=== PATIENT | female | born 1995 | race Caucasian/White ===

== ENCOUNTER 2018-06-10 01:10 | Inpatient (IN) | payer BC ==
[2018-06-10] MEDS ORDERED: Ondansetron 4 MG/2 ML SDV IVPUSH PRN ×2 (17:03→20:10)
[2018-06-10] MEDS ORDERED: Nalbuphine 20 MG/ML 1 ML Syringe IVPUSH PRN (17:03)
[2018-06-10] MEDS ORDERED: Sodium Chloride 0.9% 10 ML Syringe FLUSH PRN (17:03)
[2018-06-10] MEDS ORDERED: Lactated Ringers 1,000 ML IV SCH (17:15)
[2018-06-10] MEDS ORDERED: Oxytocin/Lactated Ringers 10 UNIT/1,000 ML BAG IV SCH (17:15)
--- NOTE | 2018-06-10 17:43 | PCM.LDHP ---
L&D History of Present Illness - General Date of Service: 06/10/18 Admit Problem/Dx: Patient Status Order with Admit Dx/Problem 06/10/18 17:03 Patient Status [ADT] Routine Admission Diagnosis/Problem Admission Diagnosis/Problem Source of Information: Patient History Limitations: Reports: No Limitations - History of Present Illness Introduction:: Carolina Quigley is a 22 year old female at 40 weeks 4 days by 10 week ultrasound who presents for elective induction of labor. She reports that since her last appointment she has been doing well. She reports some occasional contractions and cramping but no regular contractions. Denies any leaking of fluid or vaginal bleeding. Reports good movement. Associated Symptoms: Denies: vaginal bleeding, vaginal discharge, vaginal fluid Present Illness Comments:: Carolina Quigley is a 22-year-old at 40 weeks 4 days by 10 week ultrasound who presents for elective induction of labor. She has had routine care with myself since 10 weeks gestational age. She received the flu shot on 11/13/2017. She received TDaP vaccine on 03/11/2018. Her has been overall uncomplicated. This complicated by: * Obesity - BMI of 40.8 on initial evaluation, patient on aspirin 81 mg daily due to obesity and nulliparity * Elevated 1 hour glucose tolerance test with normal 3 hour glucose tolerance test labs Blood type: A+ Antibody screen: Negative First trimester hematocrit/hemoglobin: 30.5%/13.2 on 11/13/2017 Platelets: 308 on 11/13/2017 Urine culture: Mixed june suggestive of contamination Rubella status: Immune Hepatitis B surface antigen: Negative RPR: Negative HIV: Negative Hemoglobin A1c: I 0.3% on 11/13/2017 Gonorrhea: Negative Chlamydia: Negative Anatomy ultrasound: Normal anatomy ultrasound, no abnormalities, posterior placenta One hour glucose tolerance test: 135 Second trimester hematocrit/hemoglobin: 35.4%/11.6 on 03/15/2018 Platelets: 260 Three-hour glucose tolerance test: Fasting 87, 1 hour 153, 2 hour 129, 3 hour 87 GBS status: Negative - Related Data Allergies/Adverse Reactions: Allergies Allergy/AdvReac Type Severity Reaction Status Date / Time No Known Allergies Allergy Verified 04/13/14 20:46 Home Medications: Home Meds . 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 Para: 0 - Past Surgical History HEENT Surgical History: Reports: Tonsillectomy Social & Family History - Tobacco Use Smoking Status *Q: Never Smoker Tobacco Use Within Last Twelve Months: No - Tobacco Core Measures Tobacco Use/Smoking Within Last 30 Days: No Smokeless Tobacco Use in Last 30 Days: No - Alcohol Use Alcohol Use History: No - Recreational Drug Use Recreational Drug Use: No Drug Use in Last 12 Months: No - Living Situation & Occupation Living situation: Reports: Single, with Significant Other Occupation: Employed H&P Review of Systems - Review of Systems: Review Of Systems: See Below General: Denies: Fever, Chills, Malaise, Weakness, Fatigue HEENT: Reports: Sinus Congestion. Denies: Headaches, Rhinitis, Post Nasal Drip , Sore Throat, Visual Changes Pulmonary: Denies: Shortness of Breath, Wheezing, Cough Cardiovascular: Denies: Chest Pain, Palpitations, Dyspnea on Exertion Gastrointestinal: Denies: Abdominal Pain, Constipation, Diarrhea, Nausea, Vomiting Genitourinary: Denies: Dysuria, Frequency, Burning, Pain, Urgency Musculoskeletal: Reports: Back Pain (And hip pain of ) Skin: Denies: Rash, Lesions Psychiatric: Denies: Depression, Anxiety Neurological: Denies: Dizziness, Headache Hematologic/Lymphatic: Denies: Anemia L&D Exam - Exam Exam: See Below - Vital Signs Weight: 115.666 kg - OB Specific Contraction Duration (sec): 40-75 Contraction Frequency (min): 2-10 Contraction Intensity: Mild Movement: Active Heart Tones: Present Heart Tones per Min: 120 (+15 x 15 accelerations, no decelerations) Heart Rate (FHR) Variability: Moderate (6-25 bmp) Presentation: Vertex Estimated Weight: 7.5-8 pounds by Joshua's - Preston Score Preston Score Cervix Position: Anterior Preston Score Consistency: Soft Preston Score Effacement: 51-70% (70) Preston Score Dilation: 3-4 cm (4.5) Preston Score Infant's Station: -2 Preston Score Total: 9 - Exam General: Alert, Oriented HEENT: Conjunctiva Clear, EOMI Neck: Supple, Trachea Midline Lungs: Clear to Auscultation, Normal Respiratory Effort Cardiovascular: Regular Rate, Regular Rhythm GI/Abdominal Exam: Soft, Non-Tender, No Distention, Other (Gravid). No: Guarding, Rigid, Rebound Genitourinary: Normal external exam Back Exam: Normal Inspection Extremities: Pedal Edema (1+) Skin: Warm, Dry, Intact Psychiatric: Alert, Normal Affect, Normal Mood - Patient Data Lab Results Last 24 hrs: Laboratory Results - last 24 hr 06/10/18 Range/Units 17:17 WBC 12.26 H (3.98-10.04) K/mm3 RBC 4.33 (3.98-5.22) M/mm3 Hgb 12.1 (11.2-15.7) gm/L Hct 36.9 (34.1-44.9) % MCV 85.2 (79.4-94.8) fl MCH 27.9 (25.6-32.2) pg MCHC 32.8 (32.2-35.5) g/dl RDW Std Deviation 41.8 (36.4-46.3) fL Plt Count 286 (182-369) K/mm3 MPV 10.6 (9.4-12.3) fl Neut % (Auto) 78.0 H (34.0-71.1) % Lymph % (Auto) 15.9 L (19.3-51.7) % [place] % (Auto) 5.4 (4.7-12.5) % Eos % (Auto) 0.4 L (0.7-5.8) Baso % (Auto) 0.1 (0.1-1.2) % Neut # (Auto) 9.56 H (1.56-6.13) K/mm3 Lymph # (Auto) 1.95 (1.18-3.74) K/mm3 [place] # (Auto) 0.66 H (0.24-0.36) K/mm3 Eos # (Auto) 0.05 (0.04-0.36) K/mm3 Baso # (Auto) 0.01 (0.01-0.08) K/mm3 Result Diagrams: 06/10/18 17:17 - Problem List (1) 40 weeks gestation of SNOMED Code(s): 58242388 ICD Code: Z3A.40 - 40 WEEKS GESTATION OF Status: Acute Current Visit: Yes (2) Obesity SNOMED Code(s): 119405376, 415241430 ICD Code: E66.9 - OBESITY, UNSPECIFIED Status: Acute Current Visit: Yes (3) Abnormal glucose tolerance test (GTT) during , antepartum Status: Acute Current Visit: Yes Problem List Initiated/Reviewed/Updated: Yes Orders Last 24hrs: Active Orders 24 hr Category Date Time Status Patient Status [ADT] Routine ADT 06/10/18 17:03 Active Activity as Tolerated [RC] PFP Care 06/10/18 17:03 Active Communication Order [RC] ASDIRECTED Care 06/10/18 17:03 Active Heart Tones [RC] ASDIRECTED Care 06/10/18 17:03 Active Non Stress Test [RC] PER UNIT ROUTINE Care 06/10/18 17:03 Active Notify Provider [RC] PFP Care 06/10/18 17:03 Active Notify Provider [RC] PRN Care 06/10/18 17:03 Active Peripheral IV Care [RC] . DIRECTED Care 06/10/18 17:03 Active Vital Signs [RC] PER UNIT ROUTINE Care 06/10/18 17:03 Active Regular Diet [DIET] Diet 06/10/18 Dinner Active RAPID PLASMA REAGIN,RPR [CHEM] Routine Lab 06/10/18 17:17 Received Lactated Ringers [Ringers, Lactated] 1,000 ml Med 06/10/18 17:15 Active IV ASDIRECTED Nalbuphine [Nubain] Med 06/10/18 17:03 Active 10 mg IVPUSH Q2H PRN Ondansetron [Zofran] Med 06/10/18 17:03 Active 4 mg IVPUSH Q4H PRN Oxytocin/Lactated Ringers [Pitocin in LR 10 Units/1,000 Med 06/10/18 17:15 Active ML] 10 unit in 1,000 ml IV .CONTINUOUS Sodium Chloride 0.9% [Saline Flush] Med 06/10/18 17:03 Active 10 ml FLUSH ASDIRECTED PRN Electronic Heart Tones Ext w TOCO [WOMSER] Oth 06/10/18 17:03 Ordered Routine Electronic Heart Tones Internal [WOMSER] Per Unit Oth 06/10/18 17:03 Ordered Routine Peripheral IV Insertion Adult [OM.PC] Routine Oth 06/10/18 17:03 Ordered Resuscitation Status Routine Resus Stat 06/10/18 17:03 Ordered Medication Orders Lactated Ringer's (Ringers, Lactated) 1,000 mls @ 100 mls/hr IV ASDIRECTED ASA Oxytocin/Lactated Ringer's (Pitocin In Lr 10 Units/1,000 Ml) 10 unit in 1,000 mls @ 500 mls/hr IV .CONTINUOUS ASA; Protocol Nalbuphine HCl (Nubain) 10 mg IVPUSH Q2H PRN PRN Reason: pain Ondansetron HCl (Zofran) 4 mg IVPUSH Q4H PRN PRN Reason: Nausea/Vomiting Sodium Chloride (Saline Flush) 10 ml FLUSH ASDIRECTED PRN PRN Reason: Keep Vein Open Assessment/Plan Comment:: On initial exam patient was found to be 4.5/70/-2/soft/anterior. Artificial rupture membranes performed with [place] without complications. Mother and baby tolerated procedure without complications. Refer to observation for elective induction of labor Start Pitocin for induction of labor if patient does not start active labor within 30-60 minutes after rupture membranes Continuous monitoring Place IV and have Lactated Ringer's at 125 ml/hr May have small amounts of regular diet Activity as tolerated May have epidural as desired Plans to breast-feed after delivery Mild range blood pressures starting this afternoon and will monitor closely. We will get a CMP and urine protein/creatinine ratio to check for possible preeclampsia without severe features versus gestational hypertension. Anticipate vaginal delivery unless otherwise indicated Deandre Naidu M.D. 5:59 PM 06/10/2018
[2018-06-10] MEDS ORDERED: fentaNYL 100 MCG/2 ML SDV ONE (19:13)
[2018-06-10] MEDS ORDERED: ePHEDrine 50 MG/ML SDV IVPUSH PRN (20:10)
[2018-06-10] MEDS ORDERED: fentaNYL 100 MCG/2 ML SDV EPIDUR PRN (20:10)
[2018-06-10] MEDS ORDERED: fentaNYL/Bupivacaine-NS 2 MCG/ML-0.125%/PF 100 ML Bag EPIDUR PRN (20:10)
[2018-06-10] MEDS ORDERED: Phenylephrine 1 MG in Sodium Chloride 0.9% 10 ML IV SCH (20:15)
--- NOTE | 2018-06-10 20:18 | PCM.PREANE ---
Preanesthetic Assessment - Anesthesia/Transfusion/Family Hx Anesthesia History: Prior Anesthesia Without Reaction Family History of Anesthesia Reaction: No Transfusion History: No Prior Transfusion(s) Intubation History: Unknown - Physical Assessment NPO Status Date: 06/10/18 Pulse: 92 O2 Sat by Pulse Oximetry: 99 Respiratory Rate: 16 Blood Pressure: 138/73 Temperature: 36.7 C Vital Signs: Last Vital Signs Temp 36.7 C 06/10/18 17:03 Pulse 92 06/10/18 17:03 Resp 16 06/10/18 17:03 BP 138/73 06/10/18 17:03 Pulse Ox Height: 1.63 m Weight: 115.666 kg ASA Class: 2 Mental Status: Alert & Oriented x3 - Lab Values: Laboratory Last Values WBC 12.26 K/mm3 (3.98-10.04) H 06/10/18 17:17 RBC 4.33 M/mm3 (3.98-5.22) 06/10/18 17:17 Hgb 12.1 gm/L (11.2-15.7) 06/10/18 17:17 Hct 36.9 % (34.1-44.9) 06/10/18 17:17 MCV 85.2 fl (79.4-94.8) 06/10/18 17:17 MCH 27.9 pg (25.6-32.2) 06/10/18 17:17 MCHC 32.8 g/dl (32.2-35.5) 06/10/18 17:17 RDW Std Deviation 41.8 fL (36.4-46.3) 06/10/18 17:17 Plt Count 286 K/mm3 (182-369) 06/10/18 17:17 MPV 10.6 fl (9.4-12.3) 06/10/18 17:17 Neut % (Auto) 78.0 % (34.0-71.1) H 06/10/18 17:17 Lymph % (Auto) 15.9 % (19.3-51.7) L 06/10/18 17:17 [place] % (Auto) 5.4 % (4.7-12.5) 06/10/18 17:17 Eos % (Auto) 0.4 (0.7-5.8) L 06/10/18 17:17 Baso % (Auto) 0.1 % (0.1-1.2) 06/10/18 17:17 Neut # (Auto) 9.56 K/mm3 (1.56-6.13) H 06/10/18 17:17 Lymph # (Auto) 1.95 K/mm3 (1.18-3.74) 06/10/18 17:17 [place] # (Auto) 0.66 K/mm3 (0.24-0.36) H 06/10/18 17:17 Eos # (Auto) 0.05 K/mm3 (0.04-0.36) 06/10/18 17:17 Baso # (Auto) 0.01 K/mm3 (0.01-0.08) 06/10/18 17:17 Sodium 135 mEq/L (136-145) L 06/10/18 17:17 Potassium 3.9 mEq/L (3.5-5.1) 06/10/18 17:17 Chloride 101 mEq/L (98-107) 06/10/18 17:17 Carbon Dioxide 22 mEq/L (21-32) 06/10/18 17:17 Anion Gap 15.9 (5-15) H 06/10/18 17:17 BUN 8 mg/dL (7-18) 06/10/18 17:17 Creatinine 0.5 mg/dL (0.55-1.02) L 06/10/18 17:17 Est Cr Clr Drug Dosing 153.69 mL/min 06/10/18 17:17 Estimated GFR (MDRD) > 60 mL/min (>60) 06/10/18 17:17 BUN/Creatinine Ratio 16.0 (14-18) 06/10/18 17:17 Glucose 70 mg/dL (74-106) L 06/10/18 17:17 Calcium 9.4 mg/dL (8.5-10.1) 06/10/18 17:17 Total Bilirubin 0.3 mg/dL (0.2-1.0) 06/10/18 17:17 AST 18 U/L (15-37) 06/10/18 17:17 ALT 19 U/L (14-59) 06/10/18 17:17 Alkaline Phosphatase 131 U/L (46-116) H 06/10/18 17:17 Total Protein 6.8 g/dl (6.4-8.2) 06/10/18 17:17 Albumin 2.9 g/dl (3.4-5.0) L 06/10/18 17:17 Globulin 3.9 gm/dL 06/10/18 17:17 Albumin/Globulin Ratio 0.7 (1-2) L 06/10/18 17:17 Above labs reviewed and noted and within acceptable ranges to proceed with epidural if desired. 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: - Past Surgical History HEENT Surgical History: Reports: Tonsillectomy - SUBSTANCE USE Smoking Status *Q: Never Smoker Tobacco Use Within Last Twelve Months: No Recreational Drug Use History: No - HOME MEDS Home Medications: Home Meds PNV95/Ferrous Fumarate/FA [ Tablet] 1 each PO DAILY 06/10/18 [History] - CURRENT (IN HOUSE) MEDS Current Meds: Current Medications Ephedrine Sulfate (Ephedrine Sulfate) 5 mg IVPUSH ASDIRECTED PRN PRN Reason: Hypotension Fentanyl (Sublimaze) 100 mcg EPIDUR Q3H PRN PRN Reason: Pain Fentanyl/Bupivacaine HCl (Jghhsjla-Huuhm-Nf 2 Mcg/Ml-0.125%) 100 ml EPIDUR ASDIRECTED PRN PRN Reason: Pain Lactated Ringer's (Ringers, Lactated) 1,000 mls @ 100 mls/hr IV ASDIRECTED ASA Last Admin: 06/10/18 18:55 Dose: 100 mls/hr Oxytocin/Lactated Ringer's (Pitocin In Lr 10 Units/1,000 Ml) 10 unit in 1,000 mls @ 500 mls/hr IV .CONTINUOUS ASA; Protocol Phenylephrine HCl 1 mg/ Sodium (Chloride) 10.1 mls @ 1 mls/sec IV TITRATE ASA; Protocol Nalbuphine HCl (Nubain) 10 mg IVPUSH Q2H PRN PRN Reason: pain Last Admin: 06/10/18 19:19 Dose: 10 mg Ondansetron HCl (Zofran) 4 mg IVPUSH Q4H PRN PRN Reason: Nausea/Vomiting Ondansetron HCl (Zofran) 4 mg IVPUSH ONETIME PRN PRN Reason: Nausea/Vomiting Sodium Chloride (Saline Flush) 10 ml FLUSH ASDIRECTED PRN PRN Reason: Keep Vein Open Discontinued Medications Fentanyl (Sublimaze) Confirm Administered Dose [address] .[facility]-MED ONE Stop: 06/10/18 19:14
--- NOTE | 2018-06-10 21:14 | PCM.PREANE ---
Preanesthetic Assessment - Anesthesia/Transfusion/Family Hx Anesthesia History: Prior Anesthesia Without Reaction Family History of Anesthesia Reaction: No Transfusion History: No Prior Transfusion(s) Intubation History: Unknown - Review of Systems General: Fatigue, Malaise Pulmonary: Shortness of Breath Cardiovascular: Dyspnea on Exertion Gastrointestinal: Abdominal Pain (labor pain) Neurological: No Symptoms Other: Reports: None - Physical Assessment NPO Status Date: 06/10/18 Pulse: 92 O2 Sat by Pulse Oximetry: 99 Respiratory Rate: 16 Blood Pressure: 138/73 Temperature: 36.7 C Vital Signs: Last Vital Signs Temp 36.7 C 06/10/18 20:18 Pulse 92 06/10/18 20:18 Resp 16 06/10/18 20:18 BP 138/73 06/10/18 20:18 Pulse Ox 99 06/10/18 20:18 Height: 1.63 m Weight: 115.666 kg ASA Class: 2 Mental Status: Alert & Oriented x3 Airway Class: Mallampati = 2 Dentition: Reports: Normal Dentition Thyro-Mental Finger Breadths: 2 Mouth Opening Finger Breadths: 2 ROM/Head Extension: Full Lungs: Clear to Auscultation, Normal Respiratory Effort Cardiovascular: Regular Rate, Regular Rhythm - Lab Values: Laboratory Last Values WBC 12.26 K/mm3 (3.98-10.04) H 06/10/18 17:17 RBC 4.33 M/mm3 (3.98-5.22) 06/10/18 17:17 Hgb 12.1 gm/L (11.2-15.7) 06/10/18 17:17 Hct 36.9 % (34.1-44.9) 06/10/18 17:17 MCV 85.2 fl (79.4-94.8) 06/10/18 17:17 MCH 27.9 pg (25.6-32.2) 06/10/18 17:17 MCHC 32.8 g/dl (32.2-35.5) 06/10/18 17:17 RDW Std Deviation 41.8 fL (36.4-46.3) 06/10/18 17:17 Plt Count 286 K/mm3 (182-369) 06/10/18 17:17 MPV 10.6 fl (9.4-12.3) 06/10/18 17:17 Neut % (Auto) 78.0 % (34.0-71.1) H 06/10/18 17:17 Lymph % (Auto) 15.9 % (19.3-51.7) L 06/10/18 17:17 [place] % (Auto) 5.4 % (4.7-12.5) 06/10/18 17:17 Eos % (Auto) 0.4 (0.7-5.8) L 06/10/18 17:17 Baso % (Auto) 0.1 % (0.1-1.2) 06/10/18 17:17 Neut # (Auto) 9.56 K/mm3 (1.56-6.13) H 06/10/18 17:17 Lymph # (Auto) 1.95 K/mm3 (1.18-3.74) 06/10/18 17:17 [place] # (Auto) 0.66 K/mm3 (0.24-0.36) H 06/10/18 17:17 Eos # (Auto) 0.05 K/mm3 (0.04-0.36) 06/10/18 17:17 Baso # (Auto) 0.01 K/mm3 (0.01-0.08) 06/10/18 17:17 Sodium 135 mEq/L (136-145) L 06/10/18 17:17 Potassium 3.9 mEq/L (3.5-5.1) 06/10/18 17:17 Chloride 101 mEq/L (98-107) 06/10/18 17:17 Carbon Dioxide 22 mEq/L (21-32) 06/10/18 17:17 Anion Gap 15.9 (5-15) H 06/10/18 17:17 BUN 8 mg/dL (7-18) 06/10/18 17:17 Creatinine 0.5 mg/dL (0.55-1.02) L 06/10/18 17:17 Est Cr Clr Drug Dosing 153.69 mL/min 06/10/18 17:17 Estimated GFR (MDRD) > 60 mL/min (>60) 06/10/18 17:17 BUN/Creatinine Ratio 16.0 (14-18) 06/10/18 17:17 Glucose 70 mg/dL (74-106) L 06/10/18 17:17 Calcium 9.4 mg/dL (8.5-10.1) 06/10/18 17:17 Total Bilirubin 0.3 mg/dL (0.2-1.0) 06/10/18 17:17 AST 18 U/L (15-37) 06/10/18 17:17 ALT 19 U/L (14-59) 06/10/18 17:17 Alkaline Phosphatase 131 U/L (46-116) H 06/10/18 17:17 Total Protein 6.8 g/dl (6.4-8.2) 06/10/18 17:17 Albumin 2.9 g/dl (3.4-5.0) L 06/10/18 17:17 Globulin 3.9 gm/dL 06/10/18 17:17 Albumin/Globulin Ratio 0.7 (1-2) L 06/10/18 17:17 - Allergies Allergies/Adverse Reactions: Allergies Allergy/AdvReac Type Severity Reaction Status Date / Time No Known Allergies Allergy Verified 04/13/14 20:46 - Anesthesia Plan Pre-Op Medication Ordered: None - Acknowledgements Anesthesia Type Planned: Epidural Pt an Appropriate Candidate for the Planned Anesthesia: Yes Alternatives and Risks of Anesthesia Discussed w Pt/Guardian: Yes Pt/Guardian Understands and Agrees with Anesthesia Plan: Yes PreAnesthesia Questionnaire - Past Health History Medical/Surgical History: Denies Medical/Surgical History Gastrointestinal History: Reports: GERD 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 HEENT Surgical History: Reports: Tonsillectomy - SUBSTANCE USE Smoking Status *Q: Never Smoker Tobacco Use Within Last Twelve Months: No Recreational Drug Use History: No - HOME MEDS Home Medications: Home Meds PNV95/Ferrous Fumarate/FA [ Tablet] 1 each PO DAILY 06/10/18 [History] - CURRENT (IN HOUSE) MEDS Current Meds: Current Medications Ephedrine Sulfate (Ephedrine Sulfate) 5 mg IVPUSH ASDIRECTED PRN PRN Reason: Hypotension Fentanyl (Sublimaze) 100 mcg EPIDUR Q3H PRN PRN Reason: Pain Last Admin: 06/10/18 21:09 Dose: 100 mcg Fentanyl/Bupivacaine HCl (Ncklttex-Dtryw-Nr 2 Mcg/Ml-0.125%) 100 ml EPIDUR ASDIRECTED PRN PRN Reason: Pain Last Admin: 04/30/19 21:09 Dose: 100 ml Lactated Ringer's (Ringers, Lactated) 1,000 mls @ 100 mls/hr IV ASDIRECTED ASA Last Admin: 06/10/18 18:55 Dose: 100 mls/hr Oxytocin/Lactated Ringer's (Pitocin In Lr 10 Units/1,000 Ml) 10 unit in 1,000 mls @ 500 mls/hr IV .CONTINUOUS ASA; Protocol Phenylephrine HCl 1 mg/ Sodium (Chloride) 10.1 mls @ 1 mls/sec IV TITRATE ASA; Protocol Nalbuphine HCl (Nubain) 10 mg IVPUSH Q2H PRN PRN Reason: pain Last Admin: 06/10/18 19:19 Dose: 10 mg Ondansetron HCl (Zofran) 4 mg IVPUSH Q4H PRN PRN Reason: Nausea/Vomiting Ondansetron HCl (Zofran) 4 mg IVPUSH ONETIME PRN PRN Reason: Nausea/Vomiting Sodium Chloride (Saline Flush) 10 ml FLUSH ASDIRECTED PRN PRN Reason: Keep Vein Open Discontinued Medications Fentanyl (Sublimaze) Confirm Administered Dose 100 mcg .ROUTE .STK-MED ONE Stop: 06/10/18 19:14
[2018-06-10] MEDS ORDERED: Bupivacaine 0.25% 10 ML SDV ONE (22:00)
[2018-06-10] MEDS ORDERED: Sodium Chloride 0.9% 1,000 ML ONE (22:03)
[2018-06-10] MEDS ORDERED: Terbutaline 1 MG/ML SDV ONE (22:06)
[2018-06-10] MEDS ORDERED: Metoclopramide 10 MG/2 ML SDV ONE (22:11)
[2018-06-10] MEDS ORDERED: Citric Acid/Sodium Citrate Solution 30 ML Cup ONE (22:11)
[2018-06-10] MEDS ORDERED: Terbutaline 1 MG/ML SDV IV ONE (23:08)
--- NOTE | 2018-06-10 23:51 | PCM.PNLD ---
Labor Progress Note - VS & Meds Vital Signs: Last Vital Signs Temp 36.7 C 06/10/18 21:14 Pulse 92 06/10/18 21:14 Resp 16 06/10/18 21:14 BP 138/73 06/10/18 21:14 Pulse Ox 99 06/10/18 21:14 Active Medications: Current Medications Ephedrine Sulfate (Ephedrine Sulfate) 5 mg IVPUSH ASDIRECTED PRN PRN Reason: Hypotension Last Admin: 06/10/18 21:26 Dose: 10 mg Fentanyl (Sublimaze) 100 mcg EPIDUR Q3H PRN PRN Reason: Pain Last Admin: 06/10/18 21:09 Dose: 100 mcg Fentanyl/Bupivacaine HCl (Zjhccyaz-Xculz-Du 2 Mcg/Ml-0.125%) 100 ml EPIDUR ASDIRECTED PRN PRN Reason: Pain Last Admin: 06/10/18 21:09 Dose: 100 ml Lactated Ringer's (Ringers, Lactated) 1,000 mls @ 100 mls/hr IV ASDIRECTED ASA Last Admin: 06/10/18 18:55 Dose: 100 mls/hr Oxytocin/Lactated Ringer's (Pitocin In Lr 10 Units/1,000 Ml) 10 unit in 1,000 mls @ 500 mls/hr IV .CONTINUOUS ASA; Protocol Phenylephrine HCl 1 mg/ Sodium (Chloride) 10.1 mls @ 1 mls/sec IV TITRATE ASA; Protocol Nalbuphine HCl (Nubain) 10 mg IVPUSH Q2H PRN PRN Reason: pain Last Admin: 06/10/18 19:19 Dose: 10 mg Ondansetron HCl (Zofran) 4 mg IVPUSH Q4H PRN PRN Reason: Nausea/Vomiting Ondansetron HCl (Zofran) 4 mg IVPUSH ONETIME PRN PRN Reason: Nausea/Vomiting Sodium Chloride (Saline Flush) 10 ml FLUSH ASDIRECTED PRN PRN Reason: Keep Vein Open Discontinued Medications Citric Acid/Sodium Citrate (Bicitra Solution) Confirm Administered Dose 30 ml .ROUTE .STK-MED ONE Stop: 06/10/18 22:12 Fentanyl (Sublimaze) Confirm Administered Dose 100 mcg .ROUTE .STK-MED ONE Stop: 06/10/18 19:14 Sodium Chloride (Normal Saline) Confirm Administered Dose 1,000 mls @ as directed .ROUTE .STK-MED ONE Stop: 06/10/18 22:04 Metoclopramide HCl (Reglan) Confirm Administered Dose 10 mg .ROUTE .STK-MED ONE Stop: 06/10/18 22:12 Terbutaline Sulfate (Brethine) Confirm Administered Dose 1 mg .ROUTE .STK-MED ONE Stop: 06/10/18 22:07 Terbutaline Sulfate (Brethine) 0.25 mg IV ONETIME ONE Stop: 06/10/18 23:09 - Uterine Contractions Contraction Frequency (min): 2-3 Contraction Duration (sec): 40-75 Contraction Intensity: Moderate to Strong Uterine Resting Tone: Soft - Monitoring Monitor Mode: Spiral Electrode Heart Rate (FHR) Baseline: 130 Heart Rate (FHR) Variability: Moderate (6-25 bmp) Accelerations: Present, 15x15 Decelerations: Early, Variable, Recurrent (>50% x 20 min) Strip Review: Category II - Vaginal Exam Dilation (cm): 9 Effacement (Percent): 90 Station: 0 Cervical Position: Anterior Sterile Vaginal Exam Performed By: Deandre Naidu - Labor Progress (Free Text) Labor Progress: Patient with recurrent variable decelerations into the 70s to 80s. Patient evaluated and had intrauterine pressure catheter placed without difficulty by Dr. Brown. Patient also had scalp electrode placed for monitoring of heart rate by Dr. Brown. Patient has had amnioinfusion started with the IUPC without significant relief of the variable decelerations. Patient on O2 by Venturi mask Patient receiving IV fluids. Pitocin stopped this time Patient with recurrent variable decelerations that have been improving throughout her evaluation after placement of the IUPC. heart rate with moderate variability after recovery from the variable deceleration. Patient making progress at this time and is currently 9/90/0/soft/anterior. Anticipate vaginal delivery unless otherwise indicated Deandre Naidu M.D. 11:50 PM 06/10/2018
[2018-06-11] MEDS ORDERED: Lidocaine 1% 50 ML MDV ONE (01:18)
--- NOTE | 2018-06-11 02:05 | PCM.DEL ---
L & D Note - General Info Date of Service: 06/11/18 Mother's Due Date: 06/06/18 - Delivery Note Labor: Augmented by ARM Delivery Outcome: Livebirth Delivery Method: Spontaneous Vaginal Delivery-Single Delivery Mode: Vacuum Extraction Presentation: Right Occiput Anterior (LIBERTAD) Nuchal Cord: Present Prep: Povidone-Iodine (Betadine Anesthesia Type: Epidural, Local Anesthetic: Lidocaine (Xylocaine) 1% Plain Local Anesthetic Volume: Other (15 ml) Amniotic Fluid Description: Clear Episiotomy Type: None Laceration: 2nd Degree, Perineal (left sided, repaired with 3-0 Vicryl) Suture type: Vicryl Suture size: 3-0 Placenta: Intact, Spontaneous Cord: 3 Vessels Estimated Blood Loss: 400 Resuscitation Needed: Yes : Bulb Syringe, Cathether, Stimulated, Warmed, [place] Used, Warmer Used Provider: Deandre Naidu Score 1 min: 6 Score 5 min: 9 Second Stage Interventions: Reports: Pushing Effectively Delivery Comments (Free Text/Narrative):: Stage I: Carolina Quigley was admitted for elective induction of labor. On admission her cervix was dilated to 4 cm. She was GBS negative. She had artificial rupture membranes with clear fluid. She began radha regularly on her own without augmentation and during labor had recurrent deep variable decelerations into the 60s to 70s with each contraction. She was given terbutaline IV to stop the contractions to help with recovery of the . She had intrauterine pressure catheter placed and amnioinfusion started. A scalp electrode was placed for monitoring of heart rate. At this time she was 8 cm dilated and was able to make recovery for the heart rate to moderate variability after the decelerations and the decelerations went into the 100s to 110s with each contraction. She continued to make progress to complete and pushing. Stage II: During pushing patient had significant decelerations into the 70s to 80s that was prolonged between contractions. Discussed with patient that due to the prolonged deceleration of the heart rate that I recommend for assistance with delivery with use of vacuum assisted delivery. Discuss some of the risks and benefits of the vacuum delivery including failure, injury to infant, brain bleed and possible need for section. Patient states in her standing and gave verbal consent. The Optireno vacuum extractor was applied to the infant's head and with the next contraction suction was applied to approximately 500 mmHg and gentle traction was applied. There was 1 pop off and was felt to be due to significant fluid in the vaginal vault that the Kiwi vacuum extractor does not do well with. Decision was made to use Nieves type electric vacuum extractor. The Nieves type vacuum extractor was applied to the head and with the next contraction vacuum was applied with suction to 400 mmHg and over the course of 3 pushes the infant's head was brought to the perineum. The vacuum was released. The vacuum was applied for a total of 1 minute. There was one total pop off. With additional pushing the mother was able to deliver the infant without difficulty. On 06/11/2018 she had a vacuum- assisted vaginal delivery of a live male at 0110. Apgars of 6 & 9. Weight of 3570 g (7 lbs 13.9 oz). Length of 20.5 inches. There was a single nuchal cord that was not reduced prior to delivery. was delivered in LIBERTAD position. The cord was doubly clamped and cut by father of the infant. was taken to the warmer for further resuscitation. Stage III: She had a spontaneous delivery of an intact placenta in Stefani presentation. Three vessel cord. She was given pitocin and fundal massage. She had a second-degree left-sided perineal laceration that was repaired with 3-0 Vicryl in usual fashion. After evaluation there was noted to be an additional spot of bleeding near one of the sutures and a [id number] suture with 3-0 Vicryl was placed and hemostasis was noted. Mom and baby were stable to recovery. EBL of 400 mL. Deandre Naidu MD 2:05 AM 06/11/2018 Vacuum Extractor Progress Note - Alternative Labor Strategies Considered Alternative Labor Strategies Considered:: Reports: Yes Strategies Considered:: Reports: Contraction Intensity Adequate, Empty Bladder Indications Considered:: Reports: Yes Indications:: Reports: Suspicion of Immediate or Potential Compromise Time Out:: Reports: Yes - Patient Prepared Patient Prepared:: Reports: Yes Informed Consent:: Reports: Verbal Risks: Reports: Yes Risks Include:: Reports: Laceration, Shoulder Dystocia, Maternal Injury Anesthesia/Analgesia Adequate:: Reports: Yes - Probability of Success High Probability of Success:: Reports: Yes Weight Estimated:: Reports: AGA Patient Diabetic:: Reports: No Pelvis Adequate:: Reports: Yes Position:: LIBERTAD Asynclitic:: Reports: No Station:: +3 - Application Time Maximum Application Time & Number of Pop-Offs Predetermined:: Reports: Yes Maximum Pressure Maintained in [place] (cm Hg):: 50 Total Application Time (min): *max=20min: 1 Number of Times Cup Disengaged:: 1 Type of Vacuum Used:: Reports: Cup: Nieves type Vacuum Extraction: Successful - Exit Strategy Exit strategy available:: Reports: Yes and resuscitation teams readily available:: Reports: Yes - General Info Date of Service: 06/11/18 - Patient Data Vitals - Most Recent: Last Vital Signs Temp 36.7 C 06/10/18 21:14 Pulse 92 06/10/18 21:14 Resp 16 06/10/18 21:14 BP 138/73 06/10/18 21:14 Pulse Ox 99 06/10/18 21:14 Weight - Most Recent: 115.666 kg Lab Results Last 24 Hours: Laboratory Results - last 24 hr 06/10/18 06/10/18 06/10/18 Range/Units 17:17 17:17 17:17 WBC 12.26 H (3.98-10.04) K/mm3 RBC 4.33 (3.98-5.22) M/mm3 Hgb 12.1 (11.2-15.7) gm/L Hct 36.9 (34.1-44.9) % MCV 85.2 (79.4-94.8) fl MCH 27.9 (25.6-32.2) pg MCHC 32.8 (32.2-35.5) g/dl RDW Std Deviation 41.8 (36.4-46.3) fL Plt Count 286 (182-369) K/mm3 MPV 10.6 (9.4-12.3) fl Neut % (Auto) 78.0 H (34.0-71.1) % Lymph % (Auto) 15.9 L (19.3-51.7) % [place] % (Auto) 5.4 (4.7-12.5) % Eos % (Auto) 0.4 L (0.7-5.8) Baso % (Auto) 0.1 (0.1-1.2) % Neut # (Auto) 9.56 H (1.56-6.13) K/mm3 Lymph # (Auto) 1.95 (1.18-3.74) K/mm3 [place] # (Auto) 0.66 H (0.24-0.36) K/mm3 Eos # (Auto) 0.05 (0.04-0.36) K/mm3 Baso # (Auto) 0.01 (0.01-0.08) K/mm3 Sodium 135 L (136-145) mEq/L Potassium 3.9 (3.5-5.1) mEq/L Chloride 101 (98-107) mEq/L Carbon Dioxide 22 (21-32) mEq/L Anion Gap 15.9 H (5-15) BUN 8 (7-18) mg/dL Creatinine 0.5 L (0.55-1.02) mg/dL Est Cr Clr Drug Dosing 153.69 mL/min Estimated GFR (MDRD) > 60 (>60) mL/min BUN/Creatinine Ratio 16.0 (14-18) Glucose 70 L (74-106) mg/dL Calcium 9.4 (8.5-10.1) mg/dL Total Bilirubin 0.3 (0.2-1.0) mg/dL AST 18 (15-37) U/L ALT 19 (14-59) U/L Alkaline Phosphatase 131 H (46-116) U/L Total Protein 6.8 (6.4-8.2) g/dl Albumin 2.9 L (3.4-5.0) g/dl Globulin 3.9 gm/dL Albumin/Globulin Ratio 0.7 L (1-2) Blood Type A POSITIVE Gel Antibody Screen Negative Med Orders - Current: Current Medications Ephedrine Sulfate (Ephedrine Sulfate) 5 mg IVPUSH ASDIRECTED PRN PRN Reason: Hypotension Last Admin: 06/10/18 21:26 Dose: 10 mg Fentanyl (Sublimaze) 100 mcg EPIDUR Q3H PRN PRN Reason: Pain Last Admin: 06/10/18 21:09 Dose: 100 mcg Fentanyl/Bupivacaine HCl (Sdpsbwcn-Lieik-Dd 2 Mcg/Ml-0.125%) 100 ml EPIDUR ASDIRECTED PRN PRN Reason: Pain Last Admin: 06/10/18 21:09 Dose: 100 ml Lactated Ringer's (Ringers, Lactated) 1,000 mls @ 100 mls/hr IV ASDIRECTED ASA Last Admin: 06/10/18 18:55 Dose: 100 mls/hr Oxytocin/Lactated Ringer's (Pitocin In Lr 10 Units/1,000 Ml) 10 unit in 1,000 mls @ 500 mls/hr IV .CONTINUOUS ASA; Protocol Phenylephrine HCl 1 mg/ Sodium (Chloride) 10.1 mls @ 1 mls/sec IV TITRATE ASA; Protocol Nalbuphine HCl (Nubain) 10 mg IVPUSH Q2H PRN PRN Reason: pain Last Admin: 06/10/18 19:19 Dose: 10 mg Ondansetron HCl (Zofran) 4 mg IVPUSH Q4H PRN PRN Reason: Nausea/Vomiting Ondansetron HCl (Zofran) 4 mg IVPUSH ONETIME PRN PRN Reason: Nausea/Vomiting Sodium Chloride (Saline Flush) 10 ml FLUSH ASDIRECTED PRN PRN Reason: Keep Vein Open Discontinued Medications Citric Acid/Sodium Citrate (Bicitra Solution) Confirm Administered Dose 30 ml .ROUTE .STK-MED ONE Stop: 06/10/18 22:12 Fentanyl (Sublimaze) Confirm Administered Dose 100 mcg .ROUTE .STK-MED ONE Stop: 06/10/18 19:14 Sodium Chloride (Normal Saline) Confirm Administered Dose 1,000 mls @ as directed .ROUTE .STK-MED ONE Stop: 06/10/18 22:04 Lidocaine HCl (Xylocaine 1%) Confirm Administered Dose 50 ml .ROUTE .STK-MED ONE Stop: 06/11/18 01:19 Metoclopramide HCl (Reglan) Confirm Administered Dose 10 mg .ROUTE .STK-MED ONE Stop: 06/10/18 22:12 Terbutaline Sulfate (Brethine) Confirm Administered Dose 1 mg .ROUTE .STK-MED ONE Stop: 06/10/18 22:07 Terbutaline Sulfate (Brethine) 0.25 mg IV ONETIME ONE Stop: 06/10/18 23:09 Last Admin: 06/10/18 22:10 Dose: 0.25 mg - Problem List & Annotations (1) 40 weeks gestation of SNOMED Code(s): 11986862 Code(s): Z3A.40 - 40 WEEKS GESTATION OF Status: Acute Current Visit: Yes (2) Obesity SNOMED Code(s): 355037851, 351838552 Code(s): E66.9 - OBESITY, UNSPECIFIED Status: Acute Current Visit: Yes (3) Abnormal glucose tolerance test (GTT) during , antepartum Status: Acute Current Visit: Yes (4) Vaginal delivery SNOMED Code(s): 799752417 Code(s): O80 - ENCOUNTER FOR FULL-TERM UNCOMPLICATED DELIVERY Status: Acute Current Visit: Yes (5) Vacuum extractor delivery, delivered SNOMED Code(s): 569674775 Code(s): O66.5 - ATTEMPTED APPLICATION OF VACUUM EXTRACTOR AND FORCEPS Status: Acute Current Visit: Yes (6) Second degree perineal laceration during delivery SNOMED Code(s): 9665269 Code(s): O70.1 - SECOND DEGREE PERINEAL LACERATION DURING DELIVERY Status: Acute Current Visit: Yes - Problem List Review Problem List Initiated/Reviewed/Updated: Yes - My Orders Last 24 Hours: My Active Orders 06/10/18 17:03 Patient Status [ADT] Routine Activity as Tolerated [RC] PFP Communication Order [RC] ASDIRECTED Heart Tones [RC] ASDIRECTED Non Stress Test [RC] PER UNIT ROUTINE Notify Provider [RC] PFP Notify Provider [RC] PRN Peripheral IV Care [RC] QSHIFT Vital Signs [RC] PER UNIT ROUTINE Nalbuphine [Nubain] 10 mg IVPUSH Q2H PRN Ondansetron [Zofran] 4 mg IVPUSH Q4H PRN Sodium Chloride 0.9% [Saline Flush] 10 ml FLUSH ASDIRECTED PRN Electronic Heart Tones Ext w TOCO [WOMSER] Routine Electronic Heart Tones Internal [WOMSER] Per Unit Routine Peripheral IV Insertion Adult [OM.PC] Routine Resuscitation Status Routine 06/10/18 17:15 Lactated Ringers [Ringers, Lactated] 1,000 ml IV ASDIRECTED Oxytocin/Lactated Ringers [Pitocin in LR 10 Units/1,000 ML] 10 unit in 1,000 ml IV .CONTINUOUS 06/10/18 17:17 RAPID PLASMA REAGIN,RPR [CHEM] Routine 06/10/18 17:47 PROTEIN/CREATININE RATIO,URINE [URCHEM] Routine 06/10/18 Dinner Regular Diet [DIET] - Plan Plan:: Admit to inpatient following vacuum-assisted vaginal delivery Continue Pitocin per unit protocol following delivery of placenta and lactated Ringer's until tolerating regular diet Regular diet Vitals per unit routine Ibuprofen and Tylenol for pain control Assist with bottlefeeding as needed Continue to monitor lochia Anticipate discharge home on day #2 Deandre Naidu MD 2:05 AM 06/11/2018
[2018-06-11] MEDS ORDERED: Ibuprofen 600 MG Tab PO PRN (05:58)
[2018-06-11] MEDS ORDERED: Witch Hazel Medicated Pads 40/Jar TOP PRN (08:00)
[2018-06-11] MEDS ORDERED: Acetaminophen 325 MG Tab PO PRN (08:00)
[2018-06-11] MEDS ORDERED: Oxytocin/Lactated Ringers 10 UNIT/1,000 ML BAG IV SCH (08:00)
[2018-06-11] MEDS ORDERED: Benzocaine/Menthol 20%-0.5% Spray 56 GM Canister TOP PRN (08:00)
[2018-06-11] MEDS ORDERED: Docusate Sodium 100 MG Cap PO PRN (08:00)
[2018-06-11] MEDS ORDERED: Hydrocortisone Acetate 25 MG Supp RECTAL PRN (08:00)
[2018-06-11] MEDS: Prenatal Multivitamin with Calcium/Folic Acid/Iron Tab PO SCH (08:21)
--- NOTE | 2018-06-11 09:12 | PCM48HPAN ---
Post Anesthesia Note - EVALUATION WITHIN 48HRS OF ANESTHETIC Vital Signs in Normal Range: Yes Patient Participated in Evaluation: Yes Respiratory Function Stable: Yes Airway Patent: Yes Cardiovascular Function Stable: Yes Hydration Status Stable: Yes Pain Control Satisfactory: Yes Nausea and Vomiting Control Satisfactory: Yes Mental Status Recovered: Yes Pulse Rate: 78 Resp Rate: 12 Temperature: 36.4 C Blood Pressure: 112/72 - COMMENTS/OBSERVATIONS Free Text/Narrative:: no anesthesia complications noted
[2018-06-11] MEDS: Ibuprofen 600 MG Tab PO PRN ×2 (13:32→20:53)
[2018-06-12 04:01] VITALS: BP 100/75
[2018-06-12] MEDS: Ibuprofen 600 MG Tab PO PRN ×2 (05:02→13:12)
--- NOTE | 2018-06-12 05:22 | PCM.SN ---
- Free Text/Narrative Note: Post Progress Note PPD # 1 Subjective: Doing well overall. Ambulating without difficulty. Lochia minimal and decreasing since day of delivery. Voiding without difficulty. Tolerating regular diet without nausea or vomiting. Pain controlled with oral medications. Bottlefeeding with minimal difficulty. Objective: Vitals: Vital Signs - 24 hr 06/11/18 06/11/18 06/11/18 08:24 09:12 16:39 Temperature 36.4 C 36.4 C 36.7 C Pulse, 78 78 108 H Peripheral Respiratory 12 12 16 Rate Blood Pressure 112/72 112/72 O2 Sat by Pulse 99 99 Oximetry 06/11/18 06/11/18 06/11/18 16:52 19:47 19:48 Temperature 36.7 C Pulse, 73 Peripheral Respiratory 14 Rate Blood Pressure 154/77 H 146/75 H 128/64 O2 Sat by Pulse 99 Oximetry 06/12/18 03:56 Temperature 36.3 C Pulse, 66 Peripheral Respiratory 14 Rate Blood Pressure 100/75 O2 Sat by Pulse 98 Oximetry Physical Exam General: Alert and oriented, no acute distress Lungs: Clear to auscultation bilaterally Heart: Regular rate and rhythm Abdomen: Soft, minimal appropriate tenderness, non-distended, fundus midline, nontender, and at the umbilicus Extremities: No edema ASSESSMENT: 22-year-old female 001 s/p vacuum-assisted vaginal delivery PPD #1, complicated by obesity and elevated one-hour glucose tolerance test with normal 3 hour test PLAN: Doing well Feeding with minimal difficulty. Assist as needed Lochia minimal. Continue to monitor for appropriate lochia. Continue routine care Patient with several mild range blood pressures in the evening yesterday but they have improved overnight and does not need additional monitoring of her blood pressures at this time. Anticipate discharge home today unless baby is not discharged Deandre Naidu MD 5:20 AM 06/12/2018
--- NOTE | 2018-06-12 05:29 | PCM.DCSUM1 ---
Discharge Summary - Hospital Course Free Text/Narrative:: Stage I: Carolina Quigley was admitted for elective induction of labor. On admission her cervix was dilated to 4 cm. She was GBS negative. She had artificial rupture membranes with clear fluid. She began radha regularly on her own without augmentation and during labor had recurrent deep variable decelerations into the 60s to 70s with each contraction. She was given terbutaline IV to stop the contractions to help with recovery of the . She had intrauterine pressure catheter placed and amnioinfusion started. A scalp electrode was placed for monitoring of heart rate. At this time she was 8 cm dilated and was able to make recovery for the heart rate to moderate variability after the decelerations and the decelerations went into the 100s to 110s with each contraction. She continued to make progress to complete and pushing. Stage II: During pushing patient had significant decelerations into the 70s to 80s that was prolonged between contractions. Discussed with patient that due to the prolonged deceleration of the infant heart rate that I recommend for assistance with delivery with use of vacuum assisted delivery. Discuss some of the risks and benefits of the vacuum delivery including failure, injury to , brain bleed and possible need for section. Patient states in her standing and gave verbal consent. The mushroom Kiwi vacuum extractor was applied to the 's head and with the next contraction suction was applied to approximately 500 mmHg and gentle traction was applied. There was 1 pop off and was felt to be due to significant fluid in the vaginal vault that the Kiwi vacuum extractor does not do well with. Decision was made to use Nieves type electric vacuum extractor. The Nieves type vacuum extractor was applied to the head and with the next contraction vacuum was applied with suction to 400 mmHg and over the course of 3 pushes the infant's head was brought to the perineum. The vacuum was released. The vacuum was applied for a total of 1 minute. There was one total pop off. With additional pushing the mother was able to deliver the without difficulty. On 06/11/2018 she had a vacuum- assisted vaginal delivery of a live male infant at 0110. Apgars of 6 & 9. Weight of 3570 g (7 lbs 13.9 oz). Length of 20.5 inches. There was a single nuchal cord that was not reduced prior to delivery. was delivered in LIBERTAD position. The cord was doubly clamped and cut by father of the infant. was taken to the warmer for further resuscitation. Stage III: She had a spontaneous delivery of an intact placenta in Stefani presentation. Three vessel cord. She was given pitocin and fundal massage. She had a second-degree left-sided perineal laceration that was repaired with 3-0 Vicryl in usual fashion. After evaluation there was noted to be an additional spot of bleeding near one of the sutures and a [id number] suture with 3-0 Vicryl was placed and hemostasis was noted. Mom and baby were stable to recovery. EBL of 400 mL. HPI Initial Comments: Stage I: Carolina Quigley was admitted for elective induction of labor. On admission her cervix was dilated to 4 cm. She was GBS negative. She had artificial rupture membranes with clear fluid. She began radha regularly on her own without augmentation and during labor had recurrent deep variable decelerations into the 60s to 70s with each contraction. She was given terbutaline IV to stop the contractions to help with recovery of the infant. She had intrauterine pressure catheter placed and amnioinfusion started. A scalp electrode was placed for monitoring of heart rate. At this time she was 8 cm dilated and was able to make recovery for the heart rate to moderate variability after the decelerations and the decelerations went into the 100s to 110s with each contraction. She continued to make progress to complete and pushing. Stage II: During pushing patient had significant decelerations into the 70s to 80s that was prolonged between contractions. Discussed with patient that due to the prolonged deceleration of the infant heart rate that I recommend for assistance with delivery with use of vacuum assisted delivery. Discuss some of the risks and benefits of the vacuum delivery including failure, injury to infant, brain bleed and possible need for section. Patient states in her standing and gave verbal consent. The mushroom Kiwi vacuum extractor was applied to the infant's head and with the next contraction suction was applied to approximately 500 mmHg and gentle traction was applied. There was 1 pop off and was felt to be due to significant fluid in the vaginal vault that the Kiwi vacuum extractor does not do well with. Decision was made to use Nieves type electric vacuum extractor. The Nieves type vacuum extractor was applied to the head and with the next contraction vacuum was applied with suction to 400 mmHg and over the course of 3 pushes the infant's head was brought to the perineum. The vacuum was released. The vacuum was applied for a total of 1 minute. There was one total pop off. With additional pushing the mother was able to deliver the without difficulty. On 06/11/2018 she had a vacuum- assisted vaginal delivery of a live male infant at 0110. Apgars of 6 & 9. Weight of 3570 g (7 lbs 13.9 oz). Length of 20.5 inches. There was a single nuchal cord that was not reduced prior to delivery. Infant was delivered in LIBERTAD position. The cord was doubly clamped and cut by father of the . Infant was taken to the warmer for further resuscitation. Stage III: She had a spontaneous delivery of an intact placenta in Stefani presentation. Three vessel cord. She was given pitocin and fundal massage. She had a second-degree left-sided perineal laceration that was repaired with 3-0 Vicryl in usual fashion. After evaluation there was noted to be an additional spot of bleeding near one of the sutures and a [id number] suture with 3-0 Vicryl was placed and hemostasis was noted. Mom and baby were stable to recovery. EBL of 400 mL. Brief History: Stage I: Carolina Quigley was admitted for elective induction of labor. On admission her cervix was dilated to 4 cm. She was GBS negative. She had artificial rupture membranes with clear fluid. She began radha regularly on her own without augmentation and during labor had recurrent deep variable decelerations into the 60s to 70s with each contraction. She was given terbutaline IV to stop the contractions to help with recovery of the . She had intrauterine pressure catheter placed and amnioinfusion started. A scalp electrode was placed for monitoring of heart rate. At this time she was 8 cm dilated and was able to make recovery for the heart rate to moderate variability after the decelerations and the decelerations went into the 100s to 110s with each contraction. She continued to make progress to complete and pushing. Stage II: During pushing patient had significant decelerations into the 70s to 80s that was prolonged between contractions. Discussed with patient that due to the prolonged deceleration of the heart rate that I recommend for assistance with delivery with use of vacuum assisted delivery. Discuss some of the risks and benefits of the vacuum delivery including failure, injury to , brain bleed and possible need for section. Patient states in her standing and gave verbal consent. The mushroom Kiwi vacuum extractor was applied to the infant's head and with the next contraction suction was applied to approximately 500 mmHg and gentle traction was applied. There was 1 pop off and was felt to be due to significant fluid in the vaginal vault that the Kiwi vacuum extractor does not do well with. Decision was made to use Nieves type electric vacuum extractor. The Nieves type vacuum extractor was applied to the head and with the next contraction vacuum was applied with suction to 400 mmHg and over the course of 3 pushes the 's head was brought to the perineum. The vacuum was released. The vacuum was applied for a total of 1 minute. There was one total pop off. With additional pushing the mother was able to deliver the infant without difficulty. On 06/11/2018 she had a vacuum-assisted vaginal delivery of a live male infant at 0110. Apgars of 6 & 9. Weight of 3570 g (7 lbs 13.9 oz). Length of 20.5 inches. There was a single nuchal cord that was not reduced prior to delivery. was delivered in LIBERTAD position. The cord was doubly clamped and cut by father of the infant. was taken to the warmer for further resuscitation. Stage III: She had a spontaneous delivery of an intact placenta in Stefani presentation. Three vessel cord. She was given pitocin and fundal massage. She had a second-degree left-sided perineal laceration that was repaired with 3-0 Vicryl in usual fashion. After evaluation there was noted to be an additional spot of bleeding near one of the sutures and a [id number] suture with 3-0 Vicryl was placed and hemostasis was noted. Mom and baby were stable to recovery. EBL of 400 mL. Diagnosis: Stroke: No - Discharge Data Discharge Date: 06/12/18 Discharge Disposition: Home, Self-Care 01 Condition: Good - Discharge Diagnosis/Problem(s) (1) 40 weeks gestation of SNOMED Code(s): 96216573 ICD Code: Z3A.40 - 40 WEEKS GESTATION OF Status: Acute Current Visit: Yes (2) Obesity SNOMED Code(s): 643657915, 212115608 ICD Code: E66.9 - OBESITY, UNSPECIFIED Status: Acute Current Visit: Yes (3) Abnormal glucose tolerance test (GTT) during , antepartum Status: Acute Current Visit: Yes (4) Vaginal delivery SNOMED Code(s): 743915653 ICD Code: O80 - ENCOUNTER FOR FULL-TERM UNCOMPLICATED DELIVERY Status: Acute Current Visit: Yes (5) Vacuum extractor delivery, delivered SNOMED Code(s): 945925796 ICD Code: O66.5 - ATTEMPTED APPLICATION OF VACUUM EXTRACTOR AND FORCEPS Status: Acute Current Visit: Yes (6) Second degree perineal laceration during delivery SNOMED Code(s): 7779941 ICD Code: O70.1 - SECOND DEGREE PERINEAL LACERATION DURING DELIVERY Status : Acute Current Visit: Yes - Patient Summary/Data Operative Procedure(s) Performed: Vacuum-assisted vaginal delivery Complications: None Consults: None Hospital Course: Carolina Quigley was admitted for elective induction of labor. On admission her cervix was dilated to 4 cm. She was GBS negative. She had artificial rupture of membranes with clear fluid. She was given an epidural for anesthesia. She began radha regularly on her own without augmentation and during labor had recurrent deep variable decelerations into the 60s to 70s with each contraction. She was given terbutaline IV to stop the contractions to help with recovery of the infant. She had intrauterine pressure catheter placed and amnioinfusion started. A scalp electrode was placed for monitoring of heart rate. At this time she was 8 cm dilated and was able to make recovery for the heart rate to moderate variability after the decelerations and the decelerations went into the 100s to 110s with each contraction. She continued to make progress to complete and pushing. During pushing patient had significant decelerations into the 70s to 80s that was prolonged between contractions. Discussed with patient that due to the prolonged deceleration of the heart rate that I recommend for assistance with delivery with use of vacuum assisted delivery. Discuss some of the risks and benefits of the vacuum delivery including failure, injury to , brain bleed and possible need for section. Patient states in her standing and gave verbal consent. The SonarMedwi vacuum extractor was applied to the 's head and with the next contraction suction was applied to approximately 500 mmHg and gentle traction was applied. There was 1 pop off and was felt to be due to significant fluid in the vaginal vault that the Kiwi vacuum extractor does not do well with. Decision was made to use Nieves type electric vacuum extractor. The Nieves type vacuum extractor was applied to the head and with the next contraction vacuum was applied with suction to 400 mmHg and over the course of 3 pushes the infant's head was brought to the perineum. The vacuum was released. The vacuum was applied for a total of 1 minute. There was one total pop off. With additional pushing the mother was able to deliver the without difficulty. On 06/11/2018 she had a vacuum- assisted vaginal delivery of a live male at 0110. Apgars of 6 & 9. Weight of 3570 g (7 lbs 13.9 oz). She had a second-degree left perineal laceration that was repaired with 3-0 Vicryl. Her course was uneventful. Her pain was well controlled and she had minimal lochia. She was ambulating, tolerating a regular diet and voiding normally. She was bottlefeeding with minimal difficulty. She was afebrile and her hemoglobin was 12.1 on admission. She desired to be discharged home on the morning of PPD #1. Her blood type is A+. - Patient Instructions Diet: Regular Diet as Tolerated Activity: Apply Ice, As Tolerated Activity, Other: Nothing in the vagina for 6 weeks Driving: May Drive Today Showering/Bathing: May Shower Notify Provider of: Fever, Increased Pain, Swelling and Redness, Drainage, Nausea and/or Vomiting Other/Special Instructions: Please contact your physician's office if you have heavy vaginal bleeding enough to soak a pad in less than an hour for several hours. Monitor for any signs of an infection in the breasts with severe pain or redness of the breast. You can try to reduce milk production by wearing a tight fitting sports bra and using cold packs. You should avoid nipple stimulation to decrease milk production as well. - Discharge Plan *PRESCRIPTION DRUG MONITORING PROGRAM REVIEWED*: Not Applicable *COPY OF PRESCRIPTION DRUG MONITORING REPORT IN PATIENT HEATHER: Not Applicable Home Medications: Home Meds PNV95/Ferrous Fumarate/FA [ Tablet] 1 each PO DAILY 06/10/18 [History] Acetaminophen [Tylenol] 650 mg PO Q6H PRN tablet 06/12/18 [Rx] Benzocaine/Menthol [Dermoplast Pain Relief Jasper] 1 spray TOP ASDIRECTED PRN canister 06/12/18 [Rx] Docusate Sodium [Colace] 100 mg PO BID PRN cap 06/12/18 [Rx] Hydrocortisone Acetate [Anucort-HC] 25 mg RECTAL BID PRN supp 06/12/18 [Rx] Ibuprofen [Motrin] 600 mg PO Q6H PRN tablet 06/12/18 [Rx] Shen Sanford [Tucks] 1 pad TOP ASDIRECTED PRN pad 06/12/18 [Rx] Patient Handouts: Vaginal Delivery, Care After, Care of a Perineal Tear Referrals: Deandre Naidu MD [Primary Care Provider] - (Follow-up in 2 weeks for routine appointment or earlier as needed.) - Discharge Summary/Plan Comment DC Time >30 min.: No - Patient Data Vitals - Most Recent: Last Vital Signs Temp 36.3 C 06/12/18 03:56 Pulse 66 06/12/18 03:56 Resp 14 06/12/18 03:56 BP 100/75 06/12/18 03:56 Pulse Ox 98 06/12/18 03:56 Weight - Most Recent: 115.666 kg I&O - Last 24 hours: Intake & Output 06/11/18 06/11/18 06/12/18 14:59 22:59 06:59 Intake Total 120 120 Balance 120 120 Lab Results - Last 24 hrs: Laboratory Results - last 24 hr 06/10/18 Range/Units 17:17 RPR Non-reactive (NONREACTIVE) Med Orders - Current: Current Medications Acetaminophen (Tylenol) 650 mg PO Q6H PRN PRN Reason: mild pain or fever Benzocaine/Menthol (Dermoplast Pain Relief Jasper) 0 gm TOP ASDIRECTED PRN PRN Reason: Perineal Comfort Measure Docusate Sodium (Colace) 100 mg PO BID PRN PRN Reason: Constipation Hydrocortisone Acetate (Anucort-Hc) 25 mg RECTAL BID PRN PRN Reason: Hemorrhoid pain Oxytocin/Lactated Ringer's (Pitocin In Lr 10 Units/1,000 Ml) 10 unit in 1,000 mls @ 100 mls/hr IV TITRATE ASA; Protocol Ibuprofen (Motrin) 600 mg PO Q6H PRN PRN Reason: Mild pain or fever Last Admin: 05/02/19 05:02 Dose: 600 mg Prenat Multivit/Coal/Iron/Folic Ac ( Plus Iron) 1 each PO DAILY ASA Last Admin: 06/11/18 08:21 Dose: 1 each Witch Claribel (Tucks) 1 pad TOP ASDIRECTED PRN PRN Reason: Perineal Comfort Measure Discontinued Medications Bupivacaine HCl (Sensorcaine-Mpf 0.25%) 10 ml .ROUTE .STK-MED ONE Stop: 06/10/18 22:01 Citric Acid/Sodium Citrate (Bicitra Solution) Confirm Administered Dose 30 ml .ROUTE .STK-MED ONE Stop: 06/10/18 22:12 Ephedrine Sulfate (Ephedrine Sulfate) 5 mg IVPUSH ASDIRECTED PRN PRN Reason: Hypotension Last Admin: 06/10/18 21:26 Dose: 10 mg Fentanyl (Sublimaze) Confirm Administered Dose 100 mcg .ROUTE .STK-MED ONE Stop: 06/10/18 19:14 Fentanyl (Sublimaze) 100 mcg EPIDUR Q3H PRN PRN Reason: Pain Last Admin: 06/10/18 21:09 Dose: 100 mcg Fentanyl/Bupivacaine HCl (Nnflqeak-Clhcy-Ga 2 Mcg/Ml-0.125%) 100 ml EPIDUR ASDIRECTED PRN PRN Reason: Pain Last Admin: 06/10/18 21:09 Dose: 100 ml Lactated Ringer's (Ringers, Lactated) 1,000 mls @ 100 mls/hr IV ASDIRECTED ASA Last Admin: 06/10/18 18:55 Dose: 100 mls/hr Oxytocin/Lactated Ringer's (Pitocin In Lr 10 Units/1,000 Ml) 10 unit in 1,000 mls @ 500 mls/hr IV .CONTINUOUS ASA; Protocol Last Admin: 06/11/18 01:15 Dose: 500 mls/hr Phenylephrine HCl 1 mg/ Sodium (Chloride) 10.1 mls @ 1 mls/sec IV TITRATE ASA; Protocol Sodium Chloride (Normal Saline) Confirm Administered Dose 1,000 mls @ as directed .ROUTE .STK-MED ONE Stop: 06/10/18 22:04 Ibuprofen (Motrin) 600 mg PO Q6H PRN PRN Reason: Pain Lidocaine HCl (Xylocaine 1%) Confirm Administered Dose 50 ml .ROUTE .STK-MED ONE Stop: 06/11/18 01:19 Last Admin: 06/11/18 01:20 Dose: 50 ml Metoclopramide HCl (Reglan) Confirm Administered Dose 10 mg .ROUTE .STK-MED ONE Stop: 06/10/18 22:12 Nalbuphine HCl (Nubain) 10 mg IVPUSH Q2H PRN PRN Reason: pain Last Admin: 06/10/18 19:19 Dose: 10 mg Ondansetron HCl (Zofran) 4 mg IVPUSH Q4H PRN PRN Reason: Nausea/Vomiting Ondansetron HCl (Zofran) 4 mg IVPUSH ONETIME PRN PRN Reason: Nausea/Vomiting Sodium Chloride (Saline Flush) 10 ml FLUSH ASDIRECTED PRN PRN Reason: Keep Vein Open Terbutaline Sulfate (Brethine) Confirm Administered Dose 1 mg .ROUTE .STK-MED ONE Stop: 06/10/18 22:07 Terbutaline Sulfate (Brethine) 0.25 mg IV ONETIME ONE Stop: 06/10/18 23:09 Last Admin: 06/10/18 22:10 Dose: 0.25 mg
[2018-06-12] MEDS: Prenatal Multivitamin with Calcium/Folic Acid/Iron Tab PO SCH (16:56)
== END 2018-06-12 13:15 | disposition home or self-care (01) | DRG 560 ==
LOC: JD.OB 01:10 → OBSVTOIN 06-11 01:10 → JD.OB 06-11 01:11
PROVIDERS: ADMIT Obstetrics & Gynecology; ATTEND Obstetrics & Gynecology
PROC: 3E0R3BZ Introduction of Anesthetic Agent into Spinal Canal, Percutaneous Approach (ICD-10-PCS; 2018-06-10)
PROC: 00HU33Z Insertion of Infusion Device into Spinal Canal, Percutaneous Approach (ICD-10-PCS; 2018-06-10)
PROC: 0KQM0ZZ Repair Perineum Muscle, Open Approach (ICD-10-PCS; principal; 2018-06-11)
PROC: 10D07Z6 Extraction of Products of Conception, Vacuum, Via Natural or Artificial Opening (ICD-10-PCS; principal; 2018-06-11)
PROC: 10907ZC Drainage of Amniotic Fluid, Therapeutic from Products of Conception, Via Natural or Artificial Opening (ICD-10-PCS; principal; 2018-06-11)
PROC: 6A550ZT Pheresis of Cord Blood Stem Cells, Single (ICD-10-PCS; principal; 2018-06-11)
PROC: 10H073Z Insertion of Monitoring Electrode into Products of Conception, Via Natural or Artificial Opening (ICD-10-PCS; principal; 2018-06-11)
PROC: 3E0E7GC Introduction of Other Therapeutic Substance into Products of Conception, Via Natural or Artificial Opening (ICD-10-PCS; principal; 2018-06-11)
PROC: 10H07YZ Insertion of Other Device into Products of Conception, Via Natural or Artificial Opening (ICD-10-PCS; principal; 2018-06-11)
DX: O48.0 Post-term pregnancy (principal); O76 Abnormality in fetal heart rate and rhythm complicating labor and delivery; O70.1 Second degree perineal laceration during delivery; Z37.0 Single live birth; Z3A.40 40 weeks gestation of pregnancy; O99.214 Obesity complicating childbirth; E66.9 Obesity, unspecified; O99.62 Diseases of the digestive system complicating childbirth; K21.9 Gastro-esophageal reflux disease without esophagitis; O69.81X0 Labor and delivery complicated by cord around neck, without compression, not applicable or unspecified; Z79.82 Long term (current) use of aspirin
CPT/HCPCS: 36415; 51702; 59025; 59409; 80053; 85025; 86592; 86850; 86900; 86901; A9270-GY; J2001; J2300; J2590; J3010; J3105; J3490; J7120

== ENCOUNTER 2019-04-27 18:19 | Emergency (ER) | payer SELFPAY ==
[2019-04-27 18:45] VITALS: BP 141/92; PULSE 105
--- NOTE | 2019-04-27 19:13 | EDM.PDOC ---
ED HPI GENERAL MEDICAL PROBLEM - General Chief Complaint: Respiratory Problem Stated Complaint: cough fever HEADACHE Time Seen by Provider: 04/27/19 18:57 Source of Information: Reports: Patient, RN Notes Reviewed - History of Present Illness INITIAL COMMENTS - FREE TEXT/NARRATIVE: 23-year-old female comes in with cough congestion fever chills. Darted yesterday. She felt better again then this morning but this afternoon started having worsening cough fever chills. Throat is very mildly scratchy. Major headache. Aebrile at time of evaluation here in the ED. she did not get a flu shot last fall. Headache Pain Score (Numeric/FACES): 4 - Related Data Allergies Allergy/AdvReac Type Severity Reaction Status Date / Time No Known Allergies Allergy Verified 04/13/14 20:46 Home Meds: Home Meds . 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 Denies: Sputum ( mild) Cardiovascular: Denies: Chest Pain GI/Abdominal: Denies: Abdominal Pain, Nausea, Vomiting Musculoskeletal: Reports: No Symptoms Skin: Reports: No Symptoms Neurological: Reports: No Symptoms ED EXAM, GENERAL - Physical Exam Exam: See Below General Appearance: Alert, No Apparent Distress Eye Exam: Bilateral Eye: PERRL Throat/Mouth: Normal Inspection, Normal Oropharynx Head: Atraumatic Neck: Supple Respiratory/Chest: No Respiratory Distress, Lungs Clear, Normal Breath Sounds. No: Rhonchi, Wheezing Cardiovascular: Regular Rate, Rhythm Extremities: Normal Inspection, Normal Range of Motion, Non-Tender Skin Exam: Warm, Dry, Normal Color Course - Vital Signs Last Recorded V/S: Last Vital Signs Temp 97.9 F 04/27/19 18:43 Pulse 105 H 04/27/19 18:43 Resp 20 04/27/19 18:43 BP 141/92 H 04/27/19 18:43 Pulse Ox 98 04/27/19 18:43 - Re-Assessments/Exams Free Text/Narrative Re-Assessment/Exam: 04/27/19 21:00 Did offer to screen patient for influenza but her symptoms are relatively mild for that right now, she does have a viral upper respiratory infection, return precautions given, she does not look at all at risk for pneumonia at this time. Discharge instructions as documented. Departure - Departure Time of Disposition: 19:11 Disposition: Home, Self-Care 01 Condition: Fair Clinical Impression: Viral URI with cough - Discharge Information Instructions: Cough, Adult, [id number], Viral Respiratory Infection, Easy-To- Read Referrals: PCP,None [Primary Care Provider] - Forms: ED Department Discharge, ED Return to Work/School Form Additional Instructions: Rest, vaporizer or steam as needed. No work tomorrow, no work until 24 hours with no fever. Tylenol or ibuprofen as needed. Cough medication as needed. Follow up clinic if not much better within 3 to 5 days as expected. Sepsis Event Note - Evaluation Sepsis Screening Result: No Definite Risk - Focused Exam Vital Signs: Vital Signs Temp Pulse Resp BP Pulse Ox 04/27/19 18:43 97.9 F 105 H 20 141/92 H 98 Date Exam was Performed: 04/27/19 Time Exam was Performed: 20:43
== END 2019-04-27 19:30 | disposition home or self-care (01) ==
LOC: JD.ED 18:19
DX: J06.9 Acute upper respiratory infection, unspecified (principal)
CPT/HCPCS: 99283

== ENCOUNTER 2020-12-08 12:49 | Inpatient (IN) | payer SELFPAY ==
[2020-12-08] MEDS ORDERED: Ondansetron 4 MG/2 ML SDV IVPUSH PRN (15:37)
[2020-12-08] MEDS ORDERED: Sodium Chloride 0.9% 10 ML Syringe FLUSH PRN (15:37)
[2020-12-08] MEDS ORDERED: Nalbuphine 10 MG/1 ML Vial IVPUSH PRN (15:37)
[2020-12-08] MEDS ORDERED: Oxytocin/Lactated Ringers 10 UNIT/1,000 ML BAG IV SCH ×2 (15:45)
[2020-12-08] MEDS ORDERED: Lactated Ringers 1,000 ML IV SCH (15:45)
--- NOTE | 2020-12-08 16:40 | PCM.PREANE ---
Preanesthetic Assessment - Procedure Proposed Procedure: Labor epidural - Anesthesia/Transfusion/Family Hx Anesthesia History: Prior Anesthesia Without Reaction Family History of Anesthesia Reaction: No Transfusion History: No Prior Transfusion(s) Intubation History: Unknown - Review of Systems General: No Symptoms Pulmonary: Cough (sinus cough) Cardiovascular: No Symptoms Gastrointestinal: Abdominal Pain (uterine contraction) Neurological: No Symptoms Other: Reports: None - Physical Assessment NPO Status Date: 12/08/20 NPO Status Time: 16:00 Vital Signs: Last Vital Signs Temp 98.4 F 12/08/20 14:11 Pulse 95 12/08/20 14:11 Resp 16 12/08/20 14:11 BP 144/90 H 12/08/20 14:11 Pulse Ox 98 12/08/20 14:11 Height: 1.65 m Weight: 118.388 kg ASA Class: 3 Mental Status: Alert & Oriented x3 Dentition: Reports: Normal Dentition Thyro-Mental Finger Breadths: 3 Mouth Opening Finger Breadths: 3 ROM/Head Extension: Full Lungs: Clear to Auscultation, Normal Respiratory Effort Cardiovascular: Regular Rate, Regular Rhythm, No Murmurs - Lab Values: Laboratory Last Values WBC 12.03 K/mm3 (3.98-10.04) H 12/08/20 16:00 RBC 4.79 M/mm3 (3.98-5.22) 12/08/20 16:00 Hgb 13.1 gm/dl (11.2-15.7) 12/08/20 16:00 Hct 40.7 % (34.1-44.9) 12/08/20 16:00 MCV 85.0 fl (79.4-94.8) 12/08/20 16:00 MCH 27.3 pg (25.6-32.2) 12/08/20 16:00 MCHC 32.2 g/dl (32.2-35.5) 12/08/20 16:00 RDW Std Deviation 43.3 fL (36.4-46.3) 12/08/20 16:00 Plt Count 318 K/mm3 (182-369) 12/08/20 16:00 MPV 11.2 fl (9.4-12.3) 12/08/20 16:00 Neut % (Auto) 78.4 % (34.0-71.1) H 12/08/20 16:00 Lymph % (Auto) 17.3 % (19.3-51.7) L 12/08/20 16:00 [place] % (Auto) 3.2 % (4.7-12.5) L 12/08/20 16:00 Eos % (Auto) 0.7 (0.7-5.8) 12/08/20 16:00 Baso % (Auto) 0.2 % (0.1-1.2) 12/08/20 16:00 Neut # (Auto) 9.44 K/mm3 (1.56-6.13) H 12/08/20 16:00 Lymph # (Auto) 2.08 K/mm3 (1.18-3.74) 12/08/20 16:00 [place] # (Auto) 0.38 K/mm3 (0.24-0.36) H 12/08/20 16:00 Eos # (Auto) 0.08 K/mm3 (0.04-0.36) 12/08/20 16:00 Baso # (Auto) 0.02 K/mm3 (0.01-0.08) 12/08/20 16:00 Membrane Rupture Positive H 12/08/20 13:50 - Allergies Allergies/Adverse Reactions: Allergies Allergy/AdvReac Type Severity Reaction Status Date / Time No Known Allergies Allergy Verified 04/13/14 20:46 - Acknowledgements Anesthesia Type Planned: Epidural Pt an Appropriate Candidate for the Planned Anesthesia: Yes Alternatives and Risks of Anesthesia Discussed w Pt/Guardian: Yes Pt/Guardian Understands and Agrees with Anesthesia Plan: Yes PreAnesthesia Questionnaire - Past Health History Medical/Surgical History: Denies Medical/Surgical History HEENT History: Reports: None Cardiovascular History: Reports: None Respiratory History: Reports: None Gastrointestinal History: Reports: GERD Genitourinary History: Reports: None 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: Musculoskeletal History: Reports: None Neurological History: Reports: None Psychiatric History: Reports: None Endocrine/Metabolic History: Reports: Obesity/BMI 30+ Immunologic History: Reports: None Oncologic (Cancer) History: Reports: None Dermatologic History: Reports: None - Past Surgical History HEENT Surgical History: Reports: Tonsillectomy - SUBSTANCE USE Tobacco Use Status *Q: Never Tobacco User Tobacco Use Within Last Twelve Months: No Second Hand Smoke Exposure: No Days Per Week of Alcohol Use: 0 Number of Drinks Per Day: 0 Total Drinks Per Week: 0 Recreational Drug Use History: No - HOME MEDS Home Medications: Home Meds . [No Known Home Meds] 04/27/19 [History] - CURRENT (IN HOUSE) MEDS Current Meds: Current Medications Lactated Ringer's (Ringers, Lactated) 1,000 mls @ 100 mls/hr IV ASDIRECTED ASA Oxytocin/Lactated Ringer's (Pitocin In Lr 10 Units/1,000 Ml) 10 unit in 1,000 mls @ 12 mls/hr IV TITRATE ASA; Protocol Oxytocin/Lactated Ringer's (Pitocin In Lr 10 Units/1,000 Ml) 10 unit in 1,000 mls @ 100 mls/hr IV .CONTINUOUS ASA Nalbuphine HCl (Nalbuphine 10 Mg/1 Ml Vial) 10 mg IVPUSH Q2H PRN PRN Reason: Pain Ondansetron HCl (Ondansetron 4 Mg/2 Ml Sdv) 4 mg IVPUSH Q4H PRN PRN Reason: Nausea/Vomiting Sodium Chloride (Sodium Chloride 0.9% 10 Ml Syringe) 10 ml FLUSH ASDIRECTED PRN PRN Reason: Keep Vein Open
[2020-12-08] MEDS ORDERED: FLU Vacc QS2021-22 36MOS UP/PF 60 MCG/0.5 ML Syringe IM ONE (18:15)
--- NOTE | 2020-12-08 20:11 | PCM.SN.2 ---
- Free Text/Narrative Note: Stage I -= patient presented with SROM. Progressed to complete with pitocin augmentation. Stage II - of viable male, weight 8#9oz, apgars 7/9 at 1947. head delivered in controlled manner over intact perineum. body and shoulders atruamatically. To maternal abdomen. Cord clamped and cut. To warmer. Positive cry. Cord blood collected. Stage III - of intact placenta, 3vc, no laceration, EBL 100 Time Documentation
[2020-12-08] MEDS ORDERED: Benzocaine/Menthol 20%-0.5% Spray 78 GM Cannister TOP PRN (20:57)
[2020-12-08] MEDS ORDERED: Witch Hazel Medicated Pads 40/Jar TOP PRN (20:57)
[2020-12-09] MEDS: Ibuprofen 600 MG Tab PO PRN ×3 (05:06→19:48)
[2020-12-09] MEDS ORDERED: Acetaminophen 325 MG Tab PO PRN (15:51)
--- NOTE | 2020-12-09 19:48 | PCM.DCSUM1 ---
Discharge Summary - Hospital Course Free Text/Narrative:: Carolina is a 25-year-old multigravida femal who was admitted on 12/08/2020 in early labor with spontaneous rupture membranes with resultant clear amniotic fluid. Patient progressed in labor with Pitocin augmentation. Stage I -= patient presented with SROM. Progressed to complete with pitocin augmentation. Stage II - of viable male, weight 8#9oz, apgars 7/9 at 1947. head delivered in controlled manner over intact perineum. body and shoulders atruamatically. To maternal abdomen. Cord clamped and cut. To warmer. Positive cry. Cord blood collected. Stage III - of intact placenta, 3vc, no laceration, EBL 100 patient is nursing without problems. She has minimal lochia and is voiding well. She is ambulating without concerns. She is desiring discharge home on day #1. Baby is already been discharged. Diagnosis: Stroke: No - Discharge Data Discharge Date: 12/09/20 Discharge Disposition: Home, Self-Care 01 Condition: Good - Referral to Home Health Primary Care Physician: Deandre Naidu MD - Discharge Diagnosis/Problem(s) (1) 38 weeks gestation of SNOMED Code(s): 29363376 ICD Code: Z3A.38 - 38 WEEKS GESTATION OF Status: Acute Current Visit: Yes (2) SROM (spontaneous rupture of membranes) SNOMED Code(s): 077054695 ICD Code: [id number] - Status: Acute Current Visit: Yes (3) Obesity SNOMED Code(s): 329675392, 766680163 ICD Code: E66.9 - OBESITY, UNSPECIFIED Status: Acute Current Visit: No - Patient Instructions Diet: Regular Diet as Tolerated (Nursing diet increase calories and calcium is recommended) Activity: As Tolerated (No intercourse or tampons until bleeding resolves.) Driving: May Drive Today Showering/Bathing: May Shower (May take a bath) Notify Provider of: Fever, Increased Pain, Swelling and Redness, Nausea and/or Vomiting - Discharge Plan Home Medications: Home Meds Pnv No.95/Ferrous Fum/Folic AC [ Tablet] 1 tab PO DAILY 12/08/20 [History] Acetaminophen [Tylenol] 650 mg PO Q6H PRN tablet 12/09/20 [Rx] Ibuprofen [Motrin] 600 mg PO Q6H PRN tablet 12/09/20 [Rx] Patient Handouts: Care After Vaginal Delivery Referrals: Deandre Naidu MD [Primary Care Provider] - (Return to [facility] weeks.) - Discharge Summary/Plan Comment DC Time >30 min.: No Total # of Minutes for Discharge Time: 10 Discharge Summary/Plan Comment: Discharge instructions: 1. Discharge home 2. Diet, activity and follow-up discussed with patient. Recommend nursing diet with increased calories and calcium. 3. Precautions given concern increased pain, bleeding, temperature, signs/symptoms of DVT/PE. 4. Medications per home medication was printed, discussed with and given to the patient. 5. Return to clinic-Dr. Naidu[facility] in 2 weeks. Diagnosis: Term -delivered Condition: Good - Patient Data Vitals - Most Recent: Last Vital Signs Temp 36.7 C 12/09/20 17:02 Pulse 83 12/09/20 17:02 Resp 16 12/09/20 17:02 BP 116/73 12/09/20 17:02 Pulse Ox 99 12/09/20 17:02 Weight - Most Recent: 118.388 kg I&O - Last 24 hours: Intake & Output 12/09/20 12/09/20 12/09/20 06:59 14:59 22:59 Intake Total 0 Balance 0 Lab Results - Last 24 hrs: Laboratory Results - last 24 hr 12/08/20 Range/Units 16:00 RPR Non-reactive (NONREACTIVE) Med Orders - Current: Current Medications Acetaminophen (Acetaminophen 325 Mg Tab) 650 mg PO Q6H PRN PRN Reason: Cramping Last Admin: 12/09/20 16:59 Dose: 650 mg Documented by: Benzocaine/Menthol (Benzocaine/Menthol 20%-0.5% [place] 78 Gm Cannister) 0 gm TOP ASDIRECTED PRN PRN Reason: Perineal Comfort Measure Last Admin: 12/08/20 21:10 Dose: 1 can Documented by: Ibuprofen (Ibuprofen 600 Mg Tab) 600 mg PO Q6H PRN PRN Reason: Mild pain or fever Last Admin: 12/09/20 13:12 Dose: 600 mg Documented by: Shen Sanford (Shen Sanford Medicated Pads 40/Jar) 1 pad TOP ASDIRECTED PRN PRN Reason: Perineal Comfort Measure Last Admin: 12/08/20 21:10 Dose: 1 tub Documented by: Discontinued Medications Lactated Ringer's (Ringers, Lactated) 1,000 mls @ 100 mls/hr IV ASDIRECTED ASA Last Admin: 12/08/20 16:34 Dose: 100 mls/hr Documented by: Oxytocin/Lactated Ringer's (Pitocin In Lr 10 Units/1,000 Ml) 10 unit in 1,000 mls @ 12 mls/hr IV TITRATE ASA; Protocol Last Titration: 12/08/20 19:48 Dose: 166.5 munits/min, 999 mls/hr Documented by: Oxytocin/Lactated Ringer's (Pitocin In Lr 10 Units/1,000 Ml) 10 unit in 1,000 mls @ 100 mls/hr IV .CONTINUOUS ASA Influenza Virus Vaccine (Pharmacy To Dose - Influenza Vaccine) 1 each IM ONETIME ONE Stop: 12/08/20 17:43 Influenza Virus Vaccine (Flu Vacc [id number] 36mos Up/Pf 60 Mcg/0.5 Ml Syringe) 60 mcg IM .ONCE ONE Stop: 12/08/20 18:16 Last Admin: 12/09/20 13:16 Dose: 60 mcg Documented by: Nalbuphine HCl (Nalbuphine 10 Mg/1 Ml Vial) 10 mg IVPUSH Q2H PRN PRN Reason: Pain Last Admin: 12/08/20 18:28 Dose: 10 mg Documented by: Ondansetron HCl (Ondansetron 4 Mg/2 Ml Sdv) 4 mg IVPUSH Q4H PRN PRN Reason: Nausea/Vomiting Sodium Chloride (Sodium Chloride 0.9% 10 Ml Syringe) 10 ml FLUSH ASDIRECTED PRN PRN Reason: Keep Vein Open
[2020-12-09 21:01] VITALS: BP 111/84; PULSE 68
== END 2020-12-09 20:48 | disposition home or self-care (01) | DRG 807 ==
LOC: JD.OBCHECK 12:49 → JD.OB 13:57 → JD.OBCHECK 15:37 → OBSVTOIN 19:47 → JD.OB 19:47
PROVIDERS: ADMIT Obstetrics & Gynecology; ATTEND Obstetrics & Gynecology
PROC: 10E0XZZ Delivery of Products of Conception, External Approach (ICD-10-PCS; principal; 2020-12-08)
PROC: 3E0R3BZ Introduction of Anesthetic Agent into Spinal Canal, Percutaneous Approach (ICD-10-PCS; 2020-12-08)
DX: O99.214 Obesity complicating childbirth (principal); Z37.0 Single live birth; Z20.822 Contact with and (suspected) exposure to COVID-19; Z3A.38 38 weeks gestation of pregnancy
CPT/HCPCS: 36415; 59025; 59409; 82565; 82570; 83615; 84112; 84156; 84450; 84460; 84520; 84550; 85025; 86592; 86850; 86900; 86901; 90686; A9270-GY; G0008; J2300; J2590; J7120; U0002

== ENCOUNTER 2021-03-26 01:34 | Emergency (ER) | payer SELFPAY ==
[2021-03-26] MEDS ORDERED: Morphine 4 MG/ML Syringe IVPUSH ONE (01:52)
[2021-03-26] MEDS ORDERED: Sodium Chloride 0.9% 1,000 ML IV ONE (01:52)
[2021-03-26 03:27] VITALS: BP 124/64; PULSE 76
== END 2021-03-26 03:26 | disposition home or self-care (01) ==
LOC: JD.ED 01:34
DX: N39.0 Urinary tract infection, site not specified (principal); K21.9 Gastro-esophageal reflux disease without esophagitis; E66.9 Obesity, unspecified; Z68.41 Body mass index [BMI] 40.0-44.9, adult; Z86.16 Personal history of COVID-19
CPT/HCPCS: 36415; 80053; 81001; 83605; 83690; 85025; 96374; 99284; J2270; J7030

== ENCOUNTER → 2021-11-14 | Day surgery (SDC) | payer SELFPAY ==
[~2021-11-14] MED LIST: Bupivacaine 0.5% 10 ML SDV ONE; Dexamethasone 4 MG/ML 5 ML MDV ONE; HYDROmorphone 0.5 MG/0.5 ML Syringe ONE; Ketamine 500 mg/10 ML MDV ONE; Ketorolac 30 MG/ML SDV ONE; Lactated Ringers 1,000 ML IV SCH; Lactated Ringers 1,000 ML ONE; Lidocaine 1% 5 ML VIAL ONE; Lidocaine 1% with EPINEPHrine 1:100,000 20 ML MDV ONE; Lidocaine 1%/Sod Bicarbonate in NS 8.4% 1 ML Syringe IDERM PRN; Midazolam 1 MG/ML 2 ML SDV ONE; Neostigmine Methylsulfate 10 MG/10 ML MDV ONE; Ondansetron 4 MG/2 ML SDV ONE; Propofol 200 MG/20 ML SDV ONE; Rocuronium 50 MG/5 ML Vial ONE; Sodium Chloride 0.9% 10 ML Syringe FLUSH PRN; Sodium Chloride 0.9% 10 ML Syringe FLUSH SCH; ceFAZolin 2 GM Vial ONE; fentaNYL 100 MCG/2 ML SDV ONE; fentaNYL 250 MCG/5 ML SDV ONE; oxyCODONE 5 MG Tab ONE
== END ==
LOC: JD.SDS 06:00
PROVIDERS: ATTEND Surgery
DX: K80.20 Calculus of gallbladder without cholecystitis without obstruction (principal); K42.9 Umbilical hernia without obstruction or gangrene; I11.0 Hypertensive heart disease with heart failure; I50.9 Heart failure, unspecified; E11.40 Type 2 diabetes mellitus with diabetic neuropathy, unspecified; E66.9 Obesity, unspecified; N32.89 Other specified disorders of bladder; K21.9 Gastro-esophageal reflux disease without esophagitis; N39.0 Urinary tract infection, site not specified; J45.909 Unspecified asthma, uncomplicated; Z98.890 Other specified postprocedural states; Z79.899 Other long term (current) drug therapy; Z68.41 Body mass index [BMI] 40.0-44.9, adult
CPT/HCPCS: 47562; A9270; J0690; J1100; J1170; J1885; J2250; J2405; J2704; J2710; J3010; J3490; J7120; 00790